=== PATIENT | male | born 1985 | race Caucasian/White ===

== ENCOUNTER 2018-10-07 10:48 | Emergency (ER) | payer OTHER ==
[2018-10-07 10:55] VITALS: BMI 30.4
[2018-10-07] MEDS ORDERED: ALBUTEROL SO4 2.5/IPRATROPIUM 0.5 INH SOL 3 ML VIAL.NEB. NEB ONE ×5 (10:55→15:09)
--- NOTE | 2018-10-07 11:23 | PDOC ---
History of Present Illness - General Chief Complaint: Asthma Stated Complaint: ASTHMA Time Seen by Provider: 10/07/18 11:21 - History of Present Illness Initial Comments: 10/07/18 11:30 Chief complaint: Asthma History of present illness: Asthmatic since age 12, home nebulizer and pump ineffective. Complains of congestion, nonproductive cough, fever/chills, malaise. 2 days duration. No shortness of breath or chest pain. No recent hospitalizations or ER visits, never intubated, no steroids orally for over one year. Review of systems: As noted above. Otherwise negative Past medical history: Significant only for asthma. No high blood pressure, diabetes, other cardiac or pulmonary disease. Social/family history reviewed and noncontributory. No smoking or respiratory exposures. No early coronary artery disease or pulmonary disease in the family. Physical exam: Alert and oriented well-developed well-nourished mild distress due to congestion and cough, but no gunjan tachypnea or dyspnea. Afebrile, mildly tachycardic at 105/m, respiratory rate 24 but unlabored. O2 sats 96% room air HEENT nasal congestion, postnasal drip, otherwise ears and throat clear Neck supple without bruit mass or nodes Lungs show decreased breath sounds bilaterally and end expiratory wheezes at both bases. No rales or rhonchi are heard CV mildly tachycardic without murmur rub or gallop pulses full and symmetric no JVD or edema no bruits Abdomen benign Neurological intact Extremities no CCE Skin clear, no rash, adequate turgor and wet mucous membranes Impression: Probable viral URI with cough, postnasal drip, and reactive bronchospasm. Rule out influenza. Rule out pneumonia Plan: Nebulizer treatments. Further evaluation depending on response to therapy. Past History - Past Medical History Allergies/Adverse Reactions: Allergies Allergy/AdvReac Type Severity Reaction Status Date / Time shellfish derived Allergy Verified 10/07/18 10:49 Home Medications: Ambulatory Orders Albuterol 0.083% Nebulizer Aminah [Ventolin 0.083% Nebulizer Soln -] 1 neb NEB QID #1 box 10/07/18 Albuterol Sulfate Inhaler - [Ventolin HFA Inhaler -] 1 - 2 inh PO QID PRN #1 inhaler 10/07/18 Guaifenesin AC [Robitussin-AC] 1 - 2 tsp PO Q8H PRN #120 ml MDD 6 10/07/18 predniSONE [Deltasone -] 10 mg PO DAILY #30 tablet 10/07/18 Asthma: Yes COPD: No - Suicide/Smoking/Psychosocial Hx Smoking History: Never smoked Have you smoked in the past 12 months: No Information on smoking cessation initiated: No Hx Alcohol Use: No *Physical Exam - Vital Signs Last Vital Signs Temp Pulse Resp BP Pulse Ox 98.5 F 105 H 24 H 132/92 96 10/07/18 10:48 10/07/18 10:48 10/07/18 10:48 10/07/18 10:48 10/07/18 10:48 Moderate Sedation - Procedure Monitoring Vital Signs: Procedure Monitoring Vital Signs Temperature 98.5 F 10/07/18 10:48 Pulse Rate 105 H 10/07/18 10:48 Respiratory Rate 24 H 10/07/18 10:48 Blood Pressure 132/92 10/07/18 10:48 O2 Sat by Pulse Oximetry (%) 96 10/07/18 10:48 Medical Decision Making - Medical Decision Making 10/07/18 11:34 2 nebulizer treatments administered. Patient marginally improved. Lung sounds unchanged. Flu swab and chest x-ray ordered. Administered another nebulizer and Sudafed for marked congestion. 10/07/18 12:36 Chest x-ray is clear. No sign of pneumonia. Nebulizer solution, albuterol, and cough syrup were prescribed. Depending on the results of the flu swab, further medication will be prescribed. Patient is discharged fully ambulatory and in no distress respiratory or otherwise with his to follow-up with his primary physician or return to the ER if bleeding worsens or there is high fever or chest pain. 10/07/18 13:51 Flu swab is negative. Prednisone prescribed. Patient informed. Follow-up as directed *DC/Admit/Observation/Transfer Diagnosis at time of Disposition: Viral URI with cough - Discharge Dispostion Disposition: HOME Condition at time of disposition: Improved Decision to Admit order: No - Prescriptions Prescriptions: Albuterol 0.083% Nebulizer Aminah [Ventolin 0.083% Nebulizer Soln -] 1 neb NEB QID #1 box Albuterol Sulfate Inhaler - [Ventolin HFA Inhaler -] 1 - 2 inh PO QID PRN #1 inhaler PRN Reason: Asthma Guaifenesin AC [Robitussin-AC] 1 - 2 tsp PO Q8H PRN #120 ml MDD 6 PRN Reason: Cough predniSONE [Deltasone -] 10 mg PO DAILY #30 tablet - Referrals - Patient Instructions Printed Discharge Instructions: DI for Viral Upper Respiratory Infection -- Adult Additional Instructions: Return to ER immediately if you become short of breath or develop fever or chest pain. Otherwise follow-up with primary physician. Medication as directed. Stay inside drink plenty fluids and get good nutrition. Use your nebulizer as directed. - Post Discharge Activity Forms/Work/School Notes: Back to Work
[2018-10-07] MEDS ORDERED: PSEUDOEPHEDRINE HCL 30 MG TABLET PO ONE (11:30)
[2018-10-07] MEDS ORDERED: PSEUDOEPHEDRINE HCL 30 MG TABLET ONE (11:31)
[2018-10-07 12:45] VITALS: BP 134/90; PULSE 89; TEMP 98.2
== END 2018-10-07 12:45 | disposition home or self-care (01) ==
LOC: FER 10:48
PROC: 3E0F7GC Introduction of Other Therapeutic Substance into Respiratory Tract, Via Natural or Artificial Opening (ICD-10-PCS; principal; 2018-10-07)
DX: B34.9 Viral infection, unspecified (principal); R05 Cough
CPT/HCPCS: 71046-TC-FY; 87804; 99283-25